=== PATIENT | female | born 1935 | race Caucasian/White ===

== ENCOUNTER 2018-07-23 13:41 | Outpatient (CLI) | payer MEDICARE ==
[~2018-07-23] VITALS: Ht 160 cm; Wt 60.3 kg
[~2018-07-23 13:41] MED LIST: FISH OIL; MCLZ25TRX; OMEGA 3; ONDAN4ODT; SCOPALAMINE PATCH; VITAMIN E; [UNRECOGNIZED DRUG - OTHER]; [UNRECOGNIZED DRUG - OTHER]
== END 2018-07-23 13:42 | disposition home or self-care (01) ==
LOC: PREOP 13:41
PROVIDERS: ATTEND Specialist
DX: Z01.818 Encounter for other preprocedural examination (principal)

== ENCOUNTER 2018-07-24 09:48 | Day surgery (SDC) | payer MEDICARE ==
[~2018-07-24] VITALS: Ht 160 cm; Wt 60.3 kg
[2018-07-24 10:05] VITALS: BP 208/133
[2018-07-24] MEDS: TETRACAINE 0.5% OPHTH SOLN 4 ML BTL (SINGLE DOSE ONLY) OU PRN ×3 (10:15→10:22)
[2018-07-24] MEDS: PHENYLEPHRINE 10% OPHTH (NEO-SYN) 5 ML BTL OU PRN ×3 (10:15→10:22)
[2018-07-24] MEDS: TROPICAMIDE 1% OPH SOLN (MYDRIACYL) 15 ML BTL OU PRN ×3 (10:15→10:22)
--- NOTE | 2018-07-24 10:45 | Ophthalmologist Pre-Op Note ---
Pre-Operative Progress Note H&P Reviewed The H&P was reviewed, patient examined and no changes noted. Date H&P Reviewed: Jul 24, 2018 Time H&P Reviewed: 10:45 Pre-Op Dx Secondary Cataract, Right Eye LIZ GUZMÁN MD Jul 24, 2018 10:45
--- NOTE | 2018-07-29 14:10 | Ophthalmology Operative Report ---
YAG Capsulotomy PREOPERATIVE DIAGNOSIS: Secondary Cataract Left Eye POSTOPERATIVE DIAGNOSIS: Secondary Cataract Left Eye PROCEDURE: YAG Capsulotomy, left eye SURGEON: Gomez Guzmán ANESTHESIA: Topical anesthesia COMPLICATIONS: None ESTIMATED BLOOD LOSS: Minimal DESCRIPTION OF PROCEDURE: After proper informed consent was obtained, the patient's, a 82 female left eye received one drop of Tropicamide and one drop of Tetracaine. The patient was then placed at the YAG laser and using a power of [ 3.5] millijoules and [ 19] bursts were used to fashion a central capsulotomy. The patient tolerated the procedure well without complications and the patient's pressure was [ 11] shortly after the laser. GOMEZ GUZMÁN MD Jul 29, 2018 14:10
== END 2018-07-24 10:50 | disposition home or self-care (01) ==
LOC: SDC 09:48
PROVIDERS: ATTEND Specialist
DX: H26.40 Unspecified secondary cataract (principal); I10 Essential (primary) hypertension; F41.9 Anxiety disorder, unspecified; Z86.73 Personal history of transient ischemic attack (TIA), and cerebral infarction without residual deficits; Z80.0 Family history of malignant neoplasm of digestive organs

== ENCOUNTER 2018-08-15 10:24 | Outpatient (CLI) | payer OTHER, MEDICARE ==
[~2018-08-15] VITALS: Ht 160 cm; Wt 60.3 kg
== END 2018-08-15 16:03 | disposition home or self-care (01) ==
LOC: PREOP 10:24
PROVIDERS: ATTEND Specialist
DX: Z01.818 Encounter for other preprocedural examination (principal)

== ENCOUNTER 2018-08-16 08:02 | Day surgery (SDC) | payer MEDICARE, OTHER ==
[~2018-08-16] VITALS: Ht 160 cm; Wt 60.3 kg
[2018-08-16 08:10] VITALS: BP 168/115
[2018-08-16] MEDS: TETRACAINE 0.5% OPHTH SOLN 4 ML BTL (SINGLE DOSE ONLY) OU PRN ×3 (08:20→08:28)
[2018-08-16] MEDS: PHENYLEPHRINE 10% OPHTH (NEO-SYN) 5 ML BTL OU PRN ×3 (08:20→08:28)
[2018-08-16] MEDS: TROPICAMIDE 1% OPH SOLN (MYDRIACYL) 15 ML BTL OU PRN ×3 (08:20→08:28)
--- NOTE | 2018-08-16 08:45 | Ophthalmologist Pre-Op Note ---
Pre-Operative Progress Note H&P Reviewed The H&P was reviewed, patient examined and no changes noted. Date H&P Reviewed: Aug 16, 2018 Time H&P Reviewed: 08:45 Pre-Op Dx Secondary Cataract, Right Eye LIZ GUZMÁN MD Aug 16, 2018 08:45
--- NOTE | 2018-08-16 08:56 | Ophthalmology Operative Report ---
YAG Capsulotomy PREOPERATIVE DIAGNOSIS: Secondary Cataract Right Eye POSTOPERATIVE DIAGNOSIS: Secondary Cataract Right Eye PROCEDURE: YAG Capsulotomy, right eye SURGEON: Gomez Guzmán ANESTHESIA: Topical anesthesia COMPLICATIONS: None ESTIMATED BLOOD LOSS: Minimal DESCRIPTION OF PROCEDURE: After proper informed consent was obtained, the patient's, a 82 female, right eye received one drop of Tropicamide and one drop of Tetracaine. The patient was then placed at the YAG laser and using a power of [3.6 ] millijoules and [ 24] bursts were used to fashion a central capsulotomy. The patient tolerated the procedure well without complications and the patient's pressure was [10 ] shortly after the laser. GOMEZ GUZMÁN MD Aug 16, 2018 08:56
--- NOTE | 2018-08-16 11:33 | Anesthesia-General Post-Op ---
MAC Patient Condition Mental Status/LOC: Same as Preop Cardiovascular: Satisfactory Nausea/Vomiting: Absent Respiratory: Satisfactory Pain: Controlled Complications: Absent Post Op Complications Complications None Follow Up Care/Instructions Patient Instructions None needed. Anesthesiology Discharge Order Discharge Order Patient is doing well, no complaints, stable vital signs, no apparent adverse anesthesia problems. No complications reported per nursing. JERI YORK CRNA Aug 16, 2018 11:33
== END 2018-08-16 09:00 | disposition home or self-care (01) ==
LOC: SDC 08:02
PROVIDERS: ATTEND Specialist
DX: H26.40 Unspecified secondary cataract (principal)